=== PATIENT | female | born 1940 | race Caucasian/White ===

== ENCOUNTER 2018-12-17 15:49 | Emergency (ER) | payer MEDICARE ==
[~2018-12-17] VITALS: Ht 165.1 cm; Wt 114.0 kg
[2018-12-17] MEDS ORDERED: SODIUM CHLORIDE FLUSH 10ML SYR IVF ONE (16:00)
--- NOTE | 2018-12-17 16:11 | NUR ---
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
[2018-12-17 16:16] LABS: BASOPHILS # (AUTO) 0.04 x10^3/uL (0-0.1); BASOPHILS % (AUTO) 1 % (0-1); EOSINOPHILS # (AUTO) 0.17 x10^3/uL (0-0.4); EOSINOPHILS % (AUTO) 2 % (1-7); LYMPHOCYTES # (AUTO) 1.66 x10^3/uL (1-3.4); LYMPHOCYTES % (AUTO) 19 % (22-44); MD NO; MEAN CORPUSCULAR HEMOGLOBIN 27.6 pg (27.0-34.8); MEAN CORPUSCULAR HGB CONC 33.6 g/dL (32.4-35.8); MEAN CORPUSCULAR VOLUME 82.2 fL (80-100); MEAN PLATELET VOLUME 8.4 fL (7.4-10.4); MONOCYTES # (AUTO) 0.45 x10^3/uL (0.2-0.8); MONOCYTES % (AUTO) 5 % (2-9); NEUTROPHILS % (AUTO) 74 % (42-75); PLATELET COUNT 338 x10^3/uL (130-400); RED BLOOD COUNT 5.16 x10^6/uL (3.82-5.3)
[2018-12-17 16:26] LABS: ALBUMIN 3.7 g/dL (3.4-5.0); ANION GAP 6 mmol/L (5-15); CALCIUM 9.6 mg/dL (8.5-10.1); CHLORIDE 98 mmol/L (98-107); CREATININE 1.71 mg/dL (0.55-1.02)
--- NOTE | 2018-12-17 16:26 | NUR ---
Report from Giovana WHITEHEAD. Pt to CT via jody and avionics repair technician. Pt to go directly from CT to MRI per Dr. Aviles.
[2018-12-17 16:30] LABS: TROPONIN I < 0.015 ng/mL (0.000-0.045)
[2018-12-17] MEDS ORDERED: METO25TA91 PO (16:32)
[2018-12-17] MEDS ORDERED: BUPR300T4 PO (16:32)
[2018-12-17] MEDS ORDERED: GABA-827 PO (16:32)
[2018-12-17] MEDS ORDERED: LEVO125T5 PO (16:32)
[2018-12-17] MEDS ORDERED: AMLO2.5T5 PO (16:32)
[2018-12-17] MEDS ORDERED: ATOR20TA37 PO (16:32)
--- NOTE | 2018-12-17 16:32 | NUR ---
DAUGHTER KEVAN FERNANDEZ, , BILL , . THIS RN WITNESSED PATIENT GIVE PERMISSION TO GIVE INFORMATION TO DAUGHTER AND
[2018-12-17] MEDS ORDERED: SODIUM CHLORIDE 0.9% 1,000ML IVBOLUS ONE (17:00)
[2018-12-17] MEDS ORDERED: MECLIZINE CHEWABLE 25 MG TAB ONE (17:09)
--- NOTE | 2018-12-17 17:10 | NUR ---
Pt medicated per MAR, positioned for comfort in bed. Pt denies other needs.
[2018-12-17] MEDS ORDERED: MECLIZINE CHEWABLE 25 MG TAB PO ONE (17:30)
[2018-12-17] MEDS ORDERED: INSU100V13 SQ (17:55)
--- NOTE | 2018-12-17 18:10 | NUR ---
Pt states dizziness is almost gone at this time, denies other needs.
--- NOTE | 2018-12-17 18:42 | NUR ---
Pt's FSBS checked per order, reported to Dr. Aviles. Pt requesting food. [employer] meal tray ordered for pt per request, ok per Dr. Aviles. Pt updated on this, she denies other needs.
--- NOTE | 2018-12-17 18:55 | NUR ---
ambulated to bathroom with steady gait, requires standby assistance but able to walk without supports.avss.
--- NOTE | 2018-12-17 19:02 | NUR ---
RECEIVED BS REPORT FROM VENTURA BENITEZ TO ASSUME PT. CARE. PT. WAS BACK TO [facility] AND PLACED ON ALL MONITORS BY NRUSING STUDENT. PT. DENIES NEEDS. CALL LIGHT IN REACH. ALL SAFTEY MEASURES OBSERVED. URINE WAS WALKED TO LAB BY VENTURA BENITEZ.
[2018-12-17 19:03] LABS: MICROSCOPIC INDICATED
--- NOTE | 2018-12-17 19:04 | NUR ---
Dr. Aviles at bedside to discuss POC with pt.
--- NOTE | 2018-12-17 19:28 | NUR ---
DR. PONCE IN TO DISCUSS PLAN FOR D/C WITH PT.
--- NOTE | 2018-12-17 19:36 | NUR ---
CALL PLACED TO TO COME GET PT. FOR D/C. FAMILY HAD TAKEN PT. 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 FOR D/C.
[2018-12-17 19:37] VITALS: BP 176/78
== END 2018-12-17 20:19 | disposition home or self-care (01) ==
LOC: ED 17:00
DX: E11.65 Type 2 diabetes mellitus with hyperglycemia (principal); I10 Essential (primary) hypertension; Z72.9 Problem related to lifestyle, unspecified; R42 Dizziness and giddiness
CPT/HCPCS: 36415; 70551; 71045; 80048; 81001; 82040; 83880; 84443; 84484; 85025; 93005; 96360; 99284; J7030